=== PATIENT | male | born 1985 | race Caucasian/White ===

== ENCOUNTER 2020-02-04 00:21 | Emergency (ER) | payer OTHER ==
[~2020-02-04] VITALS: Ht 177.8 cm; Wt 90.7 kg
[2020-02-04 00:40] VITALS: BP 146/95
--- NOTE | 2020-02-04 00:45 | NUR ---
34 Y/O MALE PRESENTED TO ED C/O SOB X 1 HR. PT STATES HE HAS BEEN FEELING SICK FOR PAST WEEK BUT X 1 HR AGO HE FELT LIKE HE WAS BREATHING TOO FAST. PT C/O OF FEVER AND COUGH X 1 WEEK. PT TOOK MOTRIN AT 2300 W/ SOME RELIEF. PT STATES HIS HAS THE SAME SYMPTOMS HIM. PT WAS SE[place] [facility] [place] SIMILAR SYMPTOMS. PT TESTED FOR COVID, RESULTS STILL PENDING. PT WAS RX MEDICINE FOR COUGH. RR EVEN AND UNLABORED. LUNG SOUNDS BL DIMINISHED BASES. OBSERVED DRY NON PRODUCTIVE COUGH NOTED. PT PLACED ON BOLT HEADER, PULSE OX AND BP CUFF. PT RESTING INBED, LOCKED AND IN LOWEST POSITION ,HOB ELEVATED, SIDE RAIL X1. ERMD MADE AWARE OF PT STATUS. PMH: SHARITAIES WILLA
--- NOTE | 2020-02-04 00:49 | NUR ---
ERMD ASSESSING PT AT BEDSIDE.
[2020-02-04] MEDS ORDERED: NACL 0.9% 1,000 ML IV ONE (01:00)
[2020-02-04] MEDS ORDERED: KETOROLAC 15 MG/ML VIAL IVP ONE (01:00)
--- NOTE | 2020-02-04 01:00 | NUR ---
LAB AT BEDSIDE.
--- NOTE | 2020-02-04 01:01 | NUR ---
20G IV TO LT AC INSERTED BY EMS PRIOR TO ER ARRIVAL. FLUSHED W/ 10 CC NS . IV PATENT , NO PAIN , REDNESS OR SWELLING AT THE IV SITE.
--- NOTE | 2020-02-04 01:17 | NUR ---
URINE SAMPLE COLLECTED AND HANDED TO LAB.
--- NOTE | 2020-02-04 01:22 | NUR ---
COVID NOVEL AND FLU SWAB COLLECTED AND HANDED TO LAB.
[2020-02-04 01:24] LABS: BASOPHILS % (AUTO) 0.5 % (0.0-2.0); EOSINOPHILS # (AUTO) 0.1 K/uL (0-0.4); EOSINOPHILS % (AUTO) 1.2 % (0.0-4.0); HEMATOCRIT 41.2 % (36-52); HEMOGLOBIN 14.1 g/dL (12.0-18.0); LYMPHOCYTES # (AUTO) 1.2 K/uL (2.0-11.5); LYMPHOCYTES % (AUTO) 17.9 % (20.5-51.1); MEAN CORPUSCULAR HEMOGLOBIN 29 pg (27-31); MEAN CORPUSCULAR HGB CONC 34 g/dL (33-37); MEAN CORPUSCULAR VOLUME 85.9 fL (80-94); MONOCYTES # (AUTO) 0.4 K/uL (0.8-1.0); MONOCYTES % (AUTO) 6.4 % (1.7-9.3); NEUTROPHILS # (AUTO) 4.8 K/uL (1.8-7.7); PLATELET COUNT (AUTO) 238 K/uL (140-450); RED CELL DISTRIBUTION WIDTH 13.4 % (11.6-13.7); WHITE BLOOD COUNT (AUTO) 6.5 K/uL (4.8-10.8)
[2020-02-04 01:48] LABS: ANION GAP 11.7 (8-16); CARBON DIOXIDE 26.6 mmol/L (21-32); CHLORIDE 103 mmol/L (98-107); CREATININE 1.4 mg/dL (0.6-1.3); GFR ARICAN-AMERICAN 75 mL/min (>90); GLUCOSE 99 mg/dL (74-106); POTASSIUM 3.3 mmol/L (3.5-5.1); SODIUM SERUM 138 mmol/L (136-145); UREA NITROGEN, BLOOD 14 mg/dL (7-18)
[2020-02-04 01:53] LABS: ALBUMIN 3.3 g/dL (3.4-5.0); ASPARTATE AMINOTRANSFERASE 43 U/L (15-37); TOTAL BILIRUBIN 0.4 mg/dL (0.0-1.0)
--- NOTE | 2020-02-04 02:56 | NUR ---
PT RESTING IN BED , LOCKED AND IN LOWEST POSITION, HOB REPOSITIONED FOR PT COMFORT. PT PROVIDED WATER AT THIS TIME. VSS. NO ACUTE DISTRESS NOTED.
--- NOTE | 2020-02-04 03:00 | NUR ---
IV removed, catheter intact and site benign. Applied folded 4x4 gauze and tape to stop bleeding.
[2020-02-04 03:23] VITALS: BP 135/85
== END 2020-02-04 03:23 | disposition home or self-care (01) ==
LOC: MED 00:21
DX: J18.9 Pneumonia, unspecified organism (principal)
CPT/HCPCS: 71045; 80053; 82550; 82553; 85025; 87804; 93005; 96361; 96374; 99285; J1885; U0003; J7030

== ENCOUNTER 2020-12-31 19:23 | Emergency (ER) | payer BC, OTHER ==
[~2020-12-31] VITALS: Ht 177.8 cm; Wt 90.7 kg
[2020-12-31 19:25] VITALS: BP 137/87
--- NOTE | 2020-12-31 20:22 | NUR ---
PT AMBULATED TO BED 03.
--- NOTE | 2020-12-31 20:22 | NUR ---
Nery hyde in [facility] - 12/31/20 at 2021 by [facility] PT AMBLATED TO BED 03
--- NOTE | 2020-12-31 20:29 | NUR ---
EYE ACUITY: 20/25 OU
[2020-12-31] MEDS ORDERED: CEPH-588 PO (21:17)
[2020-12-31] MEDS ORDERED: BACI1PAC6 TP (21:17)
[2020-12-31 21:26] VITALS: BP 137/87
--- NOTE | 2020-12-31 21:27 | NUR ---
Patient discharged with v/s stable. Written and verbal after care instructions given and explained. Patient alert, oriented and verbalized understanding of instructions. Ambulatory with steady gait. All questions addressed prior to discharge. ID band removed. Patient advised to follow up with PMD. Rx of BACITRACIN ZINC AND CEOHALEXIN given. Patient educated on indication of medication including possible reaction and side effects. Opportunity to ask questions provided and answered.
== END 2020-12-31 21:27 | disposition home or self-care (01) ==
LOC: MED 19:23
DX: H00.011 Hordeolum externum right upper eyelid (principal)
CPT/HCPCS: 99283